=== PATIENT | male | born 1975 | race Caucasian/White ===

== ENCOUNTER 2020-12-25 17:16 | Emergency (ER) | payer OTHER ==
[2020-12-25] MEDS ORDERED: MORPHINE SULFATE 2 MG INJ IV ONE (17:22)
[2020-12-25] MEDS ORDERED: Sodium Chloride 0.9% 1000 ML 1,000 ML IV SCH (17:30)
[2020-12-25] MEDS ORDERED: Sodium Chloride 0.9% 1000 ML 1,000 ML ONE (17:35)
[2020-12-25] MEDS ORDERED: MORPHINE SULFATE 2 MG INJ ONE (17:35)
[2020-12-25] MEDS ORDERED: Ativan 2 MG/1 ML VIAL IV ONE (17:36)
[2020-12-25] MEDS ORDERED: Ativan 2 MG/1 ML VIAL ONE (17:41)
[2020-12-25 17:44] LABS: Absolute Neutrophil Ct (ANC) 6.66 (1.4-6.9); BASOPHIL % 0.6 % (0.0-0.4); Basophil (Absolute #) 0.06 (0-0.4); Eosinophil % 1.5 % (0.00-5.0); Eosinophil (Absolute #) 0.15 (0-0.5); Hematocrit 43.7 % (42-50); Hemoglobin 13.8 gm/dl (12.5-18.0); Lymphocyte (Absolute #) 2.61 (1.0-4.6); Lymphocytes % 25.7 % (24.0-44.0); Mean Cell Volume 92.6 fl (78-100); Mean Corpuscular Hemoglobin 29.2 pg (26-32); Mean Corpuscular Hgb Concent. 31.6 g/dl (32-36); Mean Platelet Volume 9.1 fl (7.5-11.0); Monocyte (Absolute #) 0.69 (0.0-1.3); Monocytes % 6.8 % (0.0-12.0); Neutrophil % 65.4 % (36.0-66.0); Platelet Count 301 K/mm3 (150-450); Red Blood Count 4.72 M/mm3 (4.1-5.6); Red Cell Distribution Width 12.8 % (11.5-14.0); White Blood Count 10.2 K/mm3 (4.0-10.5)
[2020-12-25 17:55] LABS: INR 0.9 (0.8-3.0); PROTIME 10.6 SECONDS (9.4-12.5)
[2020-12-25 18:03] LABS: ALBUMIN 4.7 g/dL (3.5-5.0); ALKALINE PHOSPHATASE 87 U/L (38-126); AMYLASE 60 U/L (30-110); ANION GAP 13.8 MEQ/L (5-15); BLOOD UREA NITROGEN 10 mg/dL (9-20); CHLORIDE 102 mmol/L (98-107); Calcium 9.4 mg/dL (8.4-10.2); Carbon Dioxide 27 mmol/L (22-30); Creatinine 1 0.64 mg/dL (0.66-1.25); EST GLOMERULAR FILTRATION RATE > 60.0 ML/MIN; Glucose 96 mg/dL (74-106); LIPASE 121 U/L (23-300); NT PRO BNP 31.8 pg/mL (0-450); Potassium 4.1 mmol/L (3.5-5.1); SGOT/AST 24 U/L (17-59); SGPT/ALT 23 U/L (0-50); SODIUM 139 mmol/L (137-145)
[2020-12-25 19:04] LABS: Appearance CLEAR (CLEAR); Bilirubin NEGATIVE (NEGATIVE); Blood NEGATIVE Ery/ul (0-5); Glucose NEGATIVE (NEGATIVE); Ketones NEGATIVE (NEGATIVE); Leukocyte Esterase NEGATIVE (NEGATIVE); Nitrite NEGATIVE (NEGATIVE); Protein,Urine Dip NEGATIVE (Negative); Specific Gravity 1.008 (1.005-1.025); Urobilinogen NEGATIVE mg/dL (0-1)
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
[2020-12-25 21:46] VITALS: BP 148/65; PULSE 88; O2SAT 97
--- NOTE | 2020-12-26 08:55 | XRAY ---
Indication: Chest tightness/pain. Comparison: None Portable apical lordotic chest clear. Heart and mediastinal structures within normal limits. Bony thorax intact with minimal degenerative changes. Impression: Nonacute chest.
== END 2020-12-25 22:00 | disposition home or self-care (01) ==
LOC: ED 17:16
DX: R07.9 Chest pain, unspecified (principal)
CPT/HCPCS: 36000; 36415; 71045; 80053; 81001; 82150; 83605; 83690; 83735; 83880; 84484; 85025; 85379; 85610; 93005; 93041; 96374; 96375; 99284; 99291; J2060; J2270

== ENCOUNTER 2021-01-25 18:58 | Emergency (ER) | payer MEDICAID, OTHER ==
[2021-01-25] MEDS ORDERED: Zofran 4 MG/2 ML VIAL ONE (19:21)
[2021-01-25] MEDS ORDERED: MORPHINE SULFATE 4 MG INJ ONE (19:21)
[2021-01-25] MEDS: MORPHINE SULFATE 4 MG INJ IV ONE (19:22)
[2021-01-25] MEDS: Zofran 4 MG/2 ML VIAL IV ONE (19:22)
[2021-01-25] MEDS: BABY ASPIRIN 81 MG CHEW PO ONE (19:22)
[2021-01-25 19:33] LABS: BASOPHIL % 0.5 % (0.0-0.4); Basophil (Absolute #) 0.04 (0-0.4); Eosinophil (Absolute #) 0.16 (0-0.5); Hemoglobin 15.4 gm/dl (12.5-18.0); Lymphocyte (Absolute #) 3.21 (1.0-4.6); Lymphocytes % 40.5 % (24.0-44.0); Mean Cell Volume 90.6 fl (78-100); Mean Corpuscular Hemoglobin 29.7 pg (26-32); Mean Corpuscular Hgb Concent. 32.8 g/dl (32-36); Mean Platelet Volume 9.2 fl (7.5-11.0); Monocyte (Absolute #) 0.62 (0.0-1.3); Monocytes % 7.8 % (0.0-12.0); Neutrophil % 49.2 % (36.0-66.0); Platelet Count 323 K/mm3 (150-450); Red Blood Count 5.19 M/mm3 (4.1-5.6); Red Cell Distribution Width 12.7 % (11.5-14.0); White Blood Count 7.9 K/mm3 (4.0-10.5)
[2021-01-25 19:43] LABS: Amphetamine,Urine NEGATIVE (NEGATIVE); Barbiturate,Urine NEGATIVE (NEGATIVE); Benzodiazepine,Urine NEGATIVE (NEGATIVE); Cocaine,Urine NEGATIVE (NEGATIVE); Methadone,Urine NEGATIVE (NEGATIVE); Opiate,Urine NEGATIVE (NEGATIVE); PCP,Urine NEGATIVE (NEGATIVE); THC,Urine NEGATIVE (NEGATIVE)
[2021-01-25 19:49] LABS: ALKALINE PHOSPHATASE 78 U/L (38-126); BLOOD UREA NITROGEN 14 mg/dL (9-20); CHLORIDE 99 mmol/L (98-107); Carbon Dioxide 30 mmol/L (22-30); Creatinine 1 0.89 mg/dL (0.66-1.25); EST GLOMERULAR FILTRATION RATE > 60.0 ML/MIN; Glucose 107 mg/dL (74-106); NT PRO BNP 21.3 pg/mL (0-450); Potassium 4.4 mmol/L (3.5-5.1); SGOT/AST 31 U/L (17-59); SGPT/ALT 25 U/L (0-50); SODIUM 142 mmol/L (137-145); Total Protein 8.6 g/dL (6.3-8.2)
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
--- NOTE | 2021-01-25 19:54 | XRAY ---
Exam: AP upright portable chest film from 01/25/2021. Comparison: AP upright portable chest film from 12/25/2020. Indication: Chest pain, dizziness, nausea. Findings: The heart size and contour are normal. The lambert and mediastinal structures appear unremarkable. EKG leads are seen in place. The lungs reveal average inflation. No air space infiltrates, vascular congestion, pneumothorax, or pleural fluid is seen. Mild lateral osteophyte formation is seen within the lower thoracic spine representing no change. Impression: 1. No acute cardiopulmonary disease is seen, no significant change from 12/25/2020.
[2021-01-25] MEDS ORDERED: TORAdol 30 mg Injection ONE (20:54)
[2021-01-25] MEDS: TORAdol 30 mg Injection IV ONE (20:57)
[2021-01-25] MEDS ORDERED: NITRO-BID 2% UD PACKETS TOP ONE (21:04)
[2021-01-25] MEDS ORDERED: NITRO-BID 2% UD PACKETS ONE (21:21)
[2021-01-25 23:17] VITALS: O2SAT 98
[2021-01-25 23:24] VITALS: BP 134/73; PULSE 83
== END 2021-01-25 23:26 | disposition home or self-care (01) ==
LOC: ED 18:58
DX: R07.89 Other chest pain (principal)
CPT/HCPCS: 36000; 36415; 71045; 80053; 80307; 83880; 84484; 85025; 85379; 93005; 93041; 96374; 96375; 99284; J1885; J2270; J2405; A9270-GY